=== PATIENT | female | born 1955 | race Caucasian/White ===

== ENCOUNTER 2016-10-06 12:36 | Emergency (ER) | payer MEDICARE ==
[~2016-10-06] VITALS: Ht 162.6 cm; Wt 58.0 kg
[~2016-10-06 12:36] MED LIST: ASPI81TA82 PO; ATOR40TA49 PO; FLUO60TA PO; GABA400 PO; HYDR-3535 PO; LEVA500T PO; METR-1 PO; MS C30TA5 PO; NORC7.5T PO; PROT40TA PO; PROZ20CA11 PO; QUET200 PO; SERO400T PO; ZOFR4TAB3 SL
[2016-10-06 12:42] VITALS: BP 124/75; PULSE 79; RESP 18; TEMP 97.9; O2SAT 98
[2016-10-06] MEDS ORDERED: NEUR600T PO (14:28)
[2016-10-06] MEDS ORDERED: PROZ40CA PO (14:28)
[2016-10-06] MEDS ORDERED: TRAZ50TA12 PO (14:28)
[2016-10-06] MEDS ORDERED: SERO400T PO (14:28)
[2016-10-06] MEDS ORDERED: IBUPROFEN 800 MG TAB PO ONE (14:30)
[2016-10-06] MEDS ORDERED: CYCLOBENZAPRINE HCL 10 MG TAB PO ONE (14:30)
--- NOTE | 2016-10-06 14:44 | RADHPO ---
EXAM DATE/TIME: 10/06/2016 14:31 [place] COMPARISON: No previous studies available for comparison. INDICATIONS: Left ankle pain after fall. MEDICAL HISTORY: None. SURGICAL HISTORY: None. ENCOUNTER: Initial ACUITY: 4 - 6 days PAIN SCORE: 9/10 LOCATION: Left lateral ankle FINDINGS: There is soft tissue swelling of the lateral malleolus with a tiny avulsion from the tip lateral mall eolus. Medial malleolus is intact. Alignment is anatomic. CONCLUSION: Soft tissue swelling lateral malleolus with a tiny avulsion evident. Sridhar Thao MD FACR on October 06, 2016 at 14:37 Board Certified Radiologist. This report was verified electronically.
[2016-10-06] MEDS ORDERED: PERC5TAB12 PO (15:00)
[2016-10-06] MEDS ORDERED: IBUP-232 PO (15:00)
--- NOTE | 2016-10-06 15:01 | PD ---
HPI Chief Complaint: Fall Time Seen by Provider: 14:10 Travel History International Travel<30 days: No Contact w/Intl Traveler<30days: No Traveled to known affect area: No History of Present Illness HPI Patient is a 61-year-old female who presented to emergency for evaluation of left ankle pain. Patient states she was getting up from a chair in her kitchen 5 days ago and rolled it subsequently falling to the floor.. Patient is having difficulty ambulate on it secondary to the pain. She denies any numbness or tingling. She denies any head injury or loss of consciousness with the fall. She does report low back pain. She states her pain is a 6 out of 10. PFSH Past Medical History Arthritis: Yes (NECK) Asthma: No Bipolar Disorder: Yes Anxiety: Yes Depression: Yes Cancer: No Cardiovascular Problems: Yes ([place]) High Cholesterol: Yes Chest Pain: No Congestive Heart Failure: No COPD: No Cerebrovascular Accident: No Diminished Hearing: No Endocrine: No Gastrointestinal Disorders: Yes GERD: Yes Genitourinary: No Hiatal Hernia: No Hypertension: Yes Immune Disorder: No Kidney Stones: No Musculoskeletal: Yes Neurologic: Yes Psychiatric: Yes (BIPOLAR) Reproductive: No Respiratory: No Immunizations Current: No Pancreatitis: Yes Renal Failure: No Seizures: Yes (epilepsy) Sleep Apnea: No Ulcer: No Tetanus Vaccination: > 5 Years Influenza Vaccination: No ?: Not Menopausal: Yes Past Surgical History Thoracic Surgery: Yes (BENIGN BREAST TUMOR REMOVED 1999) Other Surgery: Yes (benign nodule removed from right breast) Social History Alcohol Use: Yes (socially) Tobacco Use: Yes (1-2 CIGS DAILY) 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) Allergies-Medications (Allergen,Severity, Reaction): Coded Allergies: Keflex (Verified Allergy, Severe, 10/06/16) Keppra (Verified Allergy, Severe, AGITATION, HALLUCINATES, 10/06/16) Reported Meds & Prescriptions Reported Meds & Active Scripts Active Reported Seroquel (Quetiapine Fumarate) 400 Mg Tab 400 Mg PO HS Trazodone (Trazodone HCl) 50 Mg Tab 50 Mg PO HS Neurontin (Gabapentin) 600 Mg Tab 600 Mg PO TID Prozac (Fluoxetine HCl) 40 Mg Cap 40 Mg PO DAILY Review of Systems Except as stated in HPI: all other systems reviewed are Neg Musculoskeletal: Positive: Myalgias, Limited ROM, Edema, Pain Physical Exam Narrative GENERAL: Well-nourished, well-developed patient. SKIN: Warm and dry. HEAD: Normocephalic. EYES: No scleral icterus. No injection or drainage. NECK: Supple, trachea midline. No JVD or lymphadenopathy. CARDIOVASCULAR: Regular rate and rhythm without murmurs, gallops, or rubs. RESPIRATORY: Breath sounds equal bilaterally. No accessory muscle use. GASTROINTESTINAL: Abdomen soft, non-tender, nondistended. MUSCULOSKELETAL: No cyanosis, edema noted to the lateral aspect of the left ankle. Positive pedal pulses, brisk is a 3 second capillary refill. Full range of motion with flexion and extension of foot. No tenderness to palpation paraspinal musculature in the lumbar region, worse on the right than the left. Patient is neurovascularly intact. BACK: Nontender without obvious deformity. No CVA tenderness. Data Data Last Documented VS Vital Signs Date Time Temp Pulse Resp B/P Pulse Ox O2 Delivery O2 Flow Rate FiO2 10/06/16 12:42 97.9 79 18 124/75 98 Orders Ankle, Complete ([id number]) (10/06/16 ) Ibuprofen (Motrin) (10/06/16 14:30) Cyclobenzaprine (Flexeril) (10/06/16 14:30) MDM Medical Decision Making Medical Screen Exam Complete: Yes Emergency Medical Condition: Yes Interpretation(s) Vital Signs Date Time Temp Pulse Resp B/P Pulse Ox O2 Delivery O2 Flow Rate FiO2 10/06/16 12:42 97.9 79 18 124/75 98 Differential Diagnosis Sprain versus strain versus contusion versus fracture versus other Narrative Course Patient is a 61-year-old female who presented to emergency for evaluation of left ankle pain and low back pain after sustaining a fall 5 days ago. Patient is neurovascularly intact. Imaging shows a tiny avulsion to the lateral malleolus. Patient be placed in Garrett splint, she will follow up with orthopedic surgeon. Patient is given Motrin and Flexeril in the emergency department for back pain. She reports improvement in her pain. Diagnosis Primary Impression: Ankle fracture, lateral malleolus, closed Qualified Code: S82.65XA - Closed nondisplaced fracture of lateral malleolus of left fibula, initial encounter Referrals: Orthopaedic Surgeon 3 days Patient Instructions: Ankle Fracture (DC), General Instructions Additional Instructions: Rest, ice, elevate extremity Take medications as directed Follow-up with orthopedic surgeon Follow-up with her primary doctor Return to emergency department for any new or worsening symptoms Do not drive or operate heavy machinery when taking her chronic pain medication Med/Other Pt SpecificInfo: Prescription(s) given Scripts Ibuprofen 600 Mg [id number] Mg PO Q6H PRN (Pain/Inflammation) #40 TAB Ref 0 Prov:Fela De Los Santos 10/06/16 Disposition: 01 DISCHARGE HOME Condition: Stable Fela De Los Santos Oct 06, 2016 15:01
== END 2016-10-06 16:09 | disposition home or self-care (01) ==
LOC: PHED 12:36 → PHEFT 16:09
DX: S82.65XA Nondisplaced fracture of lateral malleolus of left fibula, initial encounter for closed fracture (principal); X50.0XXA Overexertion from strenuous movement or load, initial encounter; Y93.89 Activity, other specified; Y92.000 Kitchen of unspecified non-institutional (private) residence as the place of occurrence of the external cause
CPT/HCPCS: 29515; 73610; 99283; E0113